=== PATIENT | female | born 1960 | race Caucasian/White ===

== ENCOUNTER 2018-05-08 07:08 | Day surgery (SDC) | payer OTHER ==
[~2018-05-08 07:08] MED LIST: LACTATED RINGER'S 1,000 ML IV; SOD CHLORIDE 0.9% 1,000 ML IV
[2018-05-08] MEDS ORDERED: ONDANSETRON 4 MG INJ IV (11:00)
[2018-05-08] MEDS ORDERED: DIPHENHYDRAMINE 50 MG INJ IV (11:00)
[2018-05-08] MEDS ORDERED: METOCLOPRAMIDE 10 MG INJ IV (11:00)
[2018-05-08] MEDS ORDERED: LABETALOL HCL 20MG INJ IV (11:00)
[2018-05-08] MEDS ORDERED: ALBUTEROL 0.083% (NEB) 2.5 MG/3 ML AMP HHN (11:00)
[2018-05-08] MEDS ORDERED: FENTAnyl 50 MCG/ML VIAL IV ×2 (11:00)
[2018-05-08] MEDS ORDERED: MEPERIDINE 25 MG INJ IV (11:00)
[2018-05-08] MEDS ORDERED: FENTAnyl 50 MCG/ML VIAL (11:00)
[2018-05-08] MEDS ORDERED: HYDROmorphONE 1 MG/5 ML IV SYRINGE IV ×2 (11:00)
[2018-05-08] MEDS ORDERED: PROPOFOL 20 ML (11:04)
[2018-05-08] MEDS ORDERED: LIDOCAINE 100 MG SYRINGE (11:04)
[2018-05-08] MEDS ORDERED: SUGAMMADEX SODIUM 200 MG/2 ML VIAL IV (11:04)
[2018-05-08] MEDS ORDERED: ROCURONIUM 50 MG INJ (11:04)
[2018-05-08] MEDS ORDERED: SUCCINYLCHOLINE CHLORIDE 100 MG/5 ML SYG IV (11:04)
== END 2018-05-08 13:23 | disposition home or self-care (01) ==
LOC: SDS 07:08
DX: N95.0 Postmenopausal bleeding (principal); E11.9 Type 2 diabetes mellitus without complications; E78.5 Hyperlipidemia, unspecified
CPT/HCPCS: 58120; 82962; 86850; 86900; 86901; 88305